=== PATIENT | female | born 1945 | race Caucasian/White ===

== ENCOUNTER 2016-04-22 00:14 | Inpatient (IN) | payer MEDICARE ==
[2016-04-22] MEDS ORDERED: DIPHENHYDRAMINE 50 MG/ML VIAL IV ONE (01:48)
[2016-04-22] MEDS ORDERED: Vancomycin HCl 0 MG in D5W 500 ML IV ONE (01:48)
--- NOTE | 2016-04-22 02:03 | EDPRACDOC ---
- General Information Chief Complaint: Cellulitis of Skin Stated Complaint: RT ARM SWELLING/REDNESS Time Seen by Provider: 04/22/16 01:43 Information Source: Patient Mode Of Arrival: Car Home Medications: Home Medications Anastrozole 1 mg PO DAILY 10/25/15 Atorvastatin Calcium [Lipitor] 20 mg PO HS 10/25/15 Cholecalciferol (Vitamin D3) [Vitamin D3] 5,000 unit PO HS 10/25/15 Levothyroxine [Synthroid, Levoxyl] 75 mcg PO DAILY 10/25/15 Multivit-Min/Folic Acid/Vit K1 [Multi For Her 50 Plus Softgel] 1 cap PO HS 10/24 Calcium Carbonate [Oscal] 1,000 mg PO HS #30 10/26/15 Carvedilol [Coreg] 6.25 mg PO BID #180 tablet 10/26/15 Clopidogrel Bisulfate [Plavix] 75 mg PO DAILY #90 tablet 10/26/15 Fenofibrate [Lofibra] 160 mg PO DAILY #30 10/26/15 Gluc Busch/Chondro Busch A/Vit C/Mn [Glucosamine 1,500 Complex Cp] 1 cap PO BID Lisinopril [Prinivil] 10 mg PO DAILY 02/04/16 Ondansetron [Zofran Odt] 4 mg PO TID PRN #10 tab.rapdis 02/04/16 Spironolactone [Aldactone] 25 mg PO DAILY 02/04/16 Allergies/Adverse Reactions: Allergies Allergy/AdvReac Type Severity Reaction Status Date / Time codeine Allergy See Verified 04/22/16 00:26 Comments Sulfa (Sulfonamide Allergy Rash-Genera Verified 04/22/16 00:26 Antibiotics) lized - History of Present Illness Onset: 2099 HPI: PT SAID THAT SHE NOTICED SOME REDNESS TO HER RIGHT ARM AROUND 2129. THE PT SAID THAT IT STARTED IN HER RIGHT AC AND HAS MOVED UP AND DOWN HER RIGHT ARM. THE PT HAS A HX OF LYMPHEDEMA TO HER RIGHT ARM AND HAS HAD CELLULITIS 4 TIMES IN THE PAST. Rash Location: Reports: Arms Quality: Reports: Red Relevant History of: Reports: None Irritability: None Pain Severity: Moderate Associated Signs and Symptoms: Reports: Red streaking ED Past Medical History - Patient Medical History Cardiac History: Reports: Hypertension, Hypercholesterolemia GI/ History: Reports: Urinary Tract Infection Musculoskeletal History: Reports: Arthritis Psychological History: Denies: Depression, Substance Use Disorder Systemic History: Reports: Cancer (right breast), Anemia (when she was younger) , Hypothyroidism Surgical History: Reports: Cholecystectomy, Other (RIGHT MASTECTOMY) - Family Medical History Reports: Hypertension (father), Diabetes (mother), Cancer (Brother with rare metastatic cancer), Stroke (Mother had multi-infarct dementia dying at 80), Cardiac Disorders (Father with [facility] at the age 68) - Social Medical History Smoking Status: Never smoker Social History: Denies: Substance Use Disorder ETOH: None Substance Abuse: None Lives In: Home EDM Review of Systems - Review of Systems ROS Negative Except as Marked: Yes All systems reviewed and were negative except as marked Integumentary: Rash - Physical Exam Constitutional: Alert (Awake), No apparent distress Oriented to: Time, Person, Place Last recorded Vital Signs: Last Vital Signs Temp 98.4 F 04/22/16 00:26 Pulse 79 04/22/16 00:26 Resp 20 04/22/16 00:26 BP 122/58 L 04/22/16 00:26 Pulse Ox 98 04/22/16 00:26 Oxygen Pulse Oxygen Saturation 98 O2 Device Oxygen Flow Rate Fraction of Inspired Oxygen ( FIO2) - HEENT Head: Normal ( normocephalic) Eye Exam: Normal (PERRL, EOMI, Sclera white) Oropharynx: Normal (Pharynx:Moist without exudate,Gums-no swelling) ENT EAC: Normal TMJ: Normal Nose: No Symptoms Reported (septum midline) Neck: Normal (FROM, trachea at midline) - Respiratory/Cardiovascular Respiratory: Normal - CTA (BBS clear to auscultation without adventitious sounds ) Cardiovascular: Normal (RRR without murmur, gallop or rub) - GI Auscultation: Normal (NABS) Palpation: Normal (Soft,No rebound or guarding, non distended) Tenderness: Non tender Tomas's Sign: Negative - Musculoskeletal Back: Normal Extremities: Other (RIGHT ARM CELLULIITS THROUGHTOUT RIGHT ARM EXTENDING UP TO RIGHT CHEST) - Integumentary Skin: Hot Lymphatics: Lymphangitis - Neurologic Memory Impaired: Normal Motor Function: Normal (Normal tone, Pulses 2+ No cyanosis or edema, FROM) Cranial Nerve: Normal (CN II-X11 intact sensation, strength 5/5) Cerebellar: Normal Mood Description: Normal Thought: Coherent Perception: Normal - Results 04/22/16 01:50 04/22/16 01:50 - EKG EKG #1 EKG Time: 02:05 -: Yes EKG interpreted by me Rate: bpm: 82 [place]: Normal Rhythm: NSR Block: None Hypertrophy: None ST: Normal Comparison: 02/04/16 - Diagnostic Imaging Chest Image interpreted by: Radiologist No active disease. Other Image interpreted by: Radiologist CT RIGHT UPPER EXTR: 1. Diffuse soft tissue swelling along the dorsal aspect of the proximal forearm, elbow and distal upper arm, with a region of soft tissue phlegmon measuring approximately 3.3 x 2.7 cm. There may be trace underlying fluid, without evidence of a drainable abscess. Mild skin thickening about the right upper arm. 2. No focal abnormality noted along the right axilla or visualized portions of the right breast. Decision Time to Discharge: 02:31 - Departure Yes I personally saw and evaluated the patient. Disposition: Home Condition: Fair Final Diagnosis: Right arm cellulitis Instructions: Cellulitis (ED) Education/Counseling Given To: Patient Education/Counseling Given Regarding: Diagnosis, Treatment, Follow Up Referrals: Donnie Ryder MD [Primary Care Provider] - One Week Prescriptions: No Action Levothyroxine [Synthroid, Levoxyl] 75 mcg PO DAILY Atorvastatin Calcium [Lipitor] 20 mg PO HS Anastrozole 1 mg PO DAILY Multivit-Min/Folic Acid/Vit K1 [Multi For Her 50 Plus Softgel] 1 cap PO HS Cholecalciferol (Vitamin D3) [Vitamin D3] 5,000 unit PO HS Calcium Carbonate [Oscal] 1,000 mg PO HS #30 Fenofibrate [Lofibra] 160 mg PO DAILY #30 Carvedilol [Coreg] 6.25 mg PO BID #180 tablet Clopidogrel Bisulfate [Plavix] 75 mg PO DAILY #90 tablet Spironolactone [Aldactone] 25 mg PO DAILY Lisinopril [Prinivil] 10 mg PO DAILY Gluc Busch/Chondro Busch A/Vit C/Mn [Glucosamine 1,500 Complex Cp] 1 cap PO BID Ondansetron [Zofran Odt] 4 mg PO TID PRN #10 tab.rapdis PRN Reason: Nausea/Vomiting Decision to Admit Time: 02:32 Decision to admit date: 04/22/16 Decision to admit: from ED - Physician Consulted Hospitalist Provider Called: Adrian Rick
[2016-04-22 02:10] LABS: MPV 8.3 fL (7.4-10.4)
[2016-04-22 02:14] LABS: BLOOD UREA NITROGEN 35 MG/DL (7-17); CALCIUM 9.9 MG/DL (8.4-10.2); CALCULATED OSMOLALITY 281 MOs/Kg (270-290); CHLORIDE 106 mEq/L (98-107); GLUCOSE 127 MG/DL (70-99); SODIUM LEVEL 141 mEq/L (137-146); TOTAL PROTEIN 7.1 G/DL (6.3-8.2)
[2016-04-22 02:24] LABS: PARTIAL THROMB. TIME 22.4 SEC (22-35); PT-INR 1.1; SEG NEUTROPHIL 88 % (45-76)
--- NOTE | 2016-04-22 02:27 | DIRPT ---
CLINICAL DATA: Cellulitis. Right arm redness, swelling, pain, and warmth. Lymphedema in the right arm. EXAM: PORTABLE CHEST 1 VIEW COMPARISON: 02/04/2016 FINDINGS: The heart size and mediastinal contours are within normal limits. Both lungs are clear. The visualized skeletal structures are unremarkable. Surgical clips in the right axilla. IMPRESSION: No active disease. Electronically Signed By: Manuel Montgomery M.D. On: 04/22/2016 02:25
[2016-04-22 02:52] LABS: FREE T3 3.62 pg/mL (2.77-5.27); FREE T4 1.5 ng/dL (0.78-2.19)
[2016-04-22] MEDS ORDERED: Pharmacy Review for Metformin - IV Contrast Given SCH (03:00)
[2016-04-22 03:05] LABS: hTSH 1.55 uIU/mL (0.5-4.67)
--- NOTE | 2016-04-22 03:18 | HISTPHYS ---
- Chief Complaint red area on arm - History of Present Illness PRIMARY CARE PROVIDER: Dr. Ryder ONCOLOGIST: Dr. Rose HPI: The patient is a 71 yo woman with a history of breast cancer and lymphedema in the right arm who presents with redness in her right arm. It started last night with a small red spot in her right anterior cubital fossa area, but then quickly spread to other parts of her arm. The redness now involves the entire right arm and right shoulder, with some spreading to the right hand and to mid chest/sternum. She reports she has had a similar event 4 times; usually she goes to her doctor, receives antibiotics and injections, and it eventually resolves. Onset: last night (several hours ago). Duration: progressively worsening. Location: right arm. Radiation: right shoulder and chest. Character: red. Slightly more swollen than usual. Itchy. Alleviated by: Nothing. Exacerbated by: Nothing. Associated Symptoms: Redness, swelling of right arm. Itching. No fever or chills. Mild pain in right arm. Has chronic pain in right shoulder and elbow that is unchanged. Mild throat pain. No throat swelling. Treatments: none at home except usual medications. - Medical History Cardiac History: Reports: Hypertension, Hypercholesterolemia GI/ History: Reports: Urinary Tract Infection Musculoskeletal History: Reports: Arthritis Systemic History: Reports: Cancer (right breast), Anemia (when she was younger) , Hypothyroidism Psychological History: Denies: Depression, Substance Use Disorder - Surgical History Reports: Cholecystectomy, Other (RIGHT MASTECTOMY) - Medictions/Allergies Allergies codeine Allergy (Verified 04/22/16 00:26) See Comments FLU LIKE SYMPTOMS PER PT Sulfa (Sulfonamide Antibiotics) Allergy (Verified 04/22/16 00:26) Rash-Generalized Current Medication List: Reviewed Home Medications Anastrozole 1 mg PO DAILY 10/25/15 Atorvastatin Calcium [Lipitor] 20 mg PO HS 10/25/15 Cholecalciferol (Vitamin D3) [Vitamin D3] 5,000 unit PO HS 10/25/15 Levothyroxine [Synthroid, Levoxyl] 75 mcg PO DAILY 10/25/15 Multivit-Min/Folic Acid/Vit K1 [Multi For Her 50 Plus Softgel] 1 cap PO HS 10/24 Calcium Carbonate [Oscal] 1,000 mg PO HS #30 10/26/15 Carvedilol [Coreg] 6.25 mg PO BID #180 tablet 10/26/15 Clopidogrel Bisulfate [Plavix] 75 mg PO DAILY #90 tablet 10/26/15 Fenofibrate [Lofibra] 160 mg PO DAILY #30 10/26/15 Gluc Busch/Chondro Busch A/Vit C/Mn [Glucosamine 1,500 Complex Cp] 1 cap PO BID Lisinopril [Prinivil] 10 mg PO DAILY 02/04/16 Ondansetron [Zofran Odt] 4 mg PO TID PRN #10 tab.rapdis 02/04/16 Spironolactone [Aldactone] 25 mg PO DAILY 02/04/16 - Family History Reports: Hypertension (father), Diabetes (mother), Cancer (Brother with rare metastatic cancer), Stroke (Mother had multi-infarct dementia dying at 80), Cardiac Disorders (Father with [facility] at the age 68) - Social History Smoking Status: Never smoker Social History: Denies: Alcohol Use, Substance Use Disorder - Review of Systems GENERAL: No Fever, chills, or diaphoresis. Positive for fatigue/malaise. HEENT: No ear pain or discharge. No nasal discharge or bleeding. Mild throat pain. No throat swelling. No eye pain or eye redness. RESPIRATORY: No cough, wheezing, or shortness of breath. CARDIOVASCULAR: No chest pain or palpitations. GI: No abdominal pain, nausea, vomiting, diarrhea, constipation, or bloody stool. NEUROLOGICAL: No headache or focal weakness. INTEGUMENT: Except as per HPI, no rashes, itching, or lesions. LYMPHATIC SYSTEM: Right arm swelling; otherwise no lymph node swelling or pain. MUSCULOSKELETAL: no new pain or joint swelling. GENITOURINARY: No dysuria or hematuria. ENDOCRINE: No polyuria or polydipsia. HEME: No chronic anemia, bleeding, or easy bruising. - Physical Exam Vital Signs: Initial Vitals Temperature 98.4 F 04/22/16 00:26 Pulse Rate 79 04/22/16 00:26 Respiratory Rate 20 04/22/16 00:26 Blood Pressure 122/58 L 04/22/16 00:26 Pulse Oxygen Saturation 98 04/22/16 00:26 Vital Signs - 24 hr 04/22/16 04/22/16 00:26 02:34 Temperature 98.4 F Pulse Rate 79 91 Respiratory 20 18 Rate Blood Pressure 122/58 L 129/58 L Pulse Oxygen 98 98 Saturation Weight: 84.8 kg Height: 5 feet 4 inches BMI: 32 - Other Exam Other Exam Findings: GENERAL: Ill-appearing, well nourished, no acute distress. HEENT: Normocephalic, atraumatic; pupils equal and round. Nares patent, without discharge or bleeding. No oropharyngeal lesions or erythema. Mucous membranes are dry. NECK: is supple, no masses, trachea midline. RESPIRATORY: Clear to auscultation bilaterally. Chest wall movements are symmetric. No use of accessory muscles to breathe. No wheezing, rales, rhonchi. CARDIOVASCULAR: Normal S1, S2. Murmur 2/6 systolic. No rubs, or gallops. PMI non -displaced. Carotids: no carotid bruits. No bradycardia or tachycardia. DP and radial pulses 2+ bilaterally. GI: soft, nontender, non-distended, normal active bowel sounds. No hepatosplenomegaly. INTEGUMENT: Right upper extremity: from shoulder to wrist: dark erythematous to purplish integument, involving entire arm circumferentially. Scattered maculopapules of same color on right hand dorsal aspect, right axilla, and right anterior chest to sternum. Otherwise, clean, dry, and intact. MUSCULOSKELETAL: Moving all extremities. No cyanosis. No clubbing. Edema: trace lower extremity edema bilaterally. Right upper extremity lymphedema. NEUROLOGICAL: Cranial nerves 2-12 grossly intact. Motor 4/5 throughout. Reflexes : 2+ bilaterally. Babinski: toes downgoing bilaterally. Intact Finger to nose. Sensory grossly intact to light touch. Intact rapid alternating movements bilaterally. No pronator drift. PSYCHIATRIC: Fully oriented. Normal and appropriate affect. LYMPHATIC: No cervical lymphadenopathy. No supraclavicular lymphadenopathy. - Lab Results Laboratory Results - last 24 hr 04/22/16 04/22/16 04/22/16 01:50 01:50 01:50 WBC 10.3 RBC 4.09 L Hgb 12.3 Hct 36.4 MCV 89 MCH 30.0 MCHC 33.8 RDW 13.9 Plt Count 243 MPV 8.3 Neut % (Auto) Cancelled Lymph % (Auto) Cancelled [place] % (Auto) Cancelled Eos % (Auto) Cancelled Baso % (Auto) Cancelled Absolute Neuts (auto) Cancelled Absolute Lymphs (auto) Cancelled Seg Neuts % (Manual) 88 H Band Neutrophils % 6 H Lymphocytes % (Manual) 6 L Absolute Neutrophils 9.68 H Absolute Lymphocytes 0.62 L Platelet Estimate Norm RBC Morphology 1+ aniso PT 11.1 INR 1.1 APTT 22.4 Sodium 141 Potassium 3.7 Chloride 106 Carbon Dioxide 26 Anion Gap 13 BUN 35 H Creatinine 0.80 Estimated GFR (MDRD) > 60 Glucose 127 H Calculated Osmolality 281 Calcium 9.9 Total Bilirubin 0.6 AST 37 H ALT 41 Alkaline Phosphatase 73 Troponin I < 0.01 Total Protein 7.1 Albumin 4.1 TSH Free T4 Free T3 04/22/16 01:50 WBC RBC Hgb Hct MCV MCH MCHC RDW Plt Count MPV Neut % (Auto) Lymph % (Auto) [place] % (Auto) Eos % (Auto) Baso % (Auto) Absolute Neuts (auto) Absolute Lymphs (auto) Seg Neuts % (Manual) Band Neutrophils % Lymphocytes % (Manual) Absolute Neutrophils Absolute Lymphocytes Platelet Estimate RBC Morphology PT INR APTT Sodium Potassium Chloride Carbon Dioxide Anion Gap BUN Creatinine Estimated GFR (MDRD) Glucose Calculated Osmolality Calcium Total Bilirubin AST ALT Alkaline Phosphatase Troponin I Total Protein Albumin TSH 1.55 Free T4 1.50 Free T3 3.62 - Diagnostic Findings EK beats per minute. Normal sinus rhythm. ST and T-wave abnormality. T- wave inversion in leads 1 and V6. Flat T-wave in lead 3. Reviewed EKG personally. Chest x-ray, viewed personally: EXAM: PORTABLE CHEST 1 VIEW COMPARISON: 02/04/2016 FINDINGS: The heart size and mediastinal contours are within normal limits. Both lungs are clear. The visualized skeletal structures are unremarkable. Surgical clips in the right axilla. IMPRESSION: No active disease. CT right upper extremity: EXAM: CT OF THE UPPER RIGHT EXTREMITY WITH CONTRAST TECHNIQUE: Multidetector CT imaging of the right upper arm and shoulder was performed according to the standard protocol following intravenous contrast administration. COMPARISON: Right upper extremity venous Doppler ultrasound performed 10/27/2008 CONTRAST: 100 mL of Isovue 370 IV contrast FINDINGS: Diffuse soft tissue swelling is noted along the dorsal aspect of the proximal forearm, elbow and distal upper arm, with a region of soft tissue phlegmon measuring approximately 3.3 x 2.7 cm in size. There may be trace underlying fluid, without evidence of a drainable abscess. Mild skin thickening is noted about the right upper arm. No definite soft tissue swelling is noted at the right axilla or visualized portions of the right breast. Clinically described skin findings are not well characterized. The visualized vasculature is grossly unremarkable in appearance. The visualized musculature is within normal limits. There is no evidence of osseous erosion. The visualized osseous structures are grossly unremarkable in appearance. The elbow joint appears intact. The right glenohumeral joint is grossly unremarkable. Minimal degenerative change is noted at the right acromioclavicular joint. Scattered clips are seen at the right axilla. The visualized portions of the right lung appear clear. Caps IMPRESSION: 1. Diffuse soft tissue swelling along the dorsal aspect of the proximal forearm, elbow and distal upper arm, with a region of soft tissue phlegmon measuring approximately 3.3 x 2.7 cm. There may be trace underlying fluid, without evidence of a drainable abscess. Mild skin thickening about the right upper arm. 2. No focal abnormality noted along the right axilla or visualized portions of the right breast. - Assessment (1) Right arm cellulitis L03.113 - CELLULITIS OF RIGHT UPPER LIMB Acute Present on Admission: Yes Area is spreading rapidly and now involves anterior chest. Plan: Admit. IV Vancomycin. (2) Right arm pain M79.601 - PAIN IN RIGHT ARM Acute Present on Admission: Yes Plan: IV Morphine prn. (3) Dehydration E86.0 - DEHYDRATION Acute Present on Admission: Yes Mild. Plan: IVFs. (4) Phlegmon L02.91 - CUTANEOUS ABSCESS, UNSPECIFIED Acute Present on Admission: Yes Phlegmon noted in deep tissues of right upper extremity on CT scan. No drainable abscess. Plan: Monitor. IV pain medication. IV vancomycin. (5) Lymphedema of right arm I89.0 - LYMPHEDEMA, NOT ELSEWHERE CLASSIFIED Acute Present on Admission: Yes Of right upper extremity. Chronic since breast cancer surgery, but has an acute component with the current cellulitis. Plan: Monitor for worsening. Case Care Discussed with: Patient, Family, Nursing Staff Total Time: 60 min
[2016-04-22 03:55] LABS: LEUKOCYTES/URINE NEG (NEGATIVE); NITRITE/URINE NEG (NEGATIVE); RBC/URINE 0-2 (0-5); URINE OCCULT BLOOD NEG (NEG/TRACE); WBC/URINE 0-2 (0-5)
--- NOTE | 2016-04-22 03:56 | DIRPT ---
CLINICAL DATA: Acute onset of right arm cellulitis, extending to the right axilla and right breast. Initial encounter. EXAM: CT OF THE UPPER RIGHT EXTREMITY WITH CONTRAST TECHNIQUE: Multidetector CT imaging of the right upper arm and shoulder was performed according to the standard protocol following intravenous contrast administration. COMPARISON: Right upper extremity venous Doppler ultrasound performed 10/27/2008 CONTRAST: 100 mL of Isovue 370 IV contrast FINDINGS: Diffuse soft tissue swelling is noted along the dorsal aspect of the proximal forearm, elbow and distal upper arm, with a region of soft tissue phlegmon measuring approximately 3.3 x 2.7 cm in size. There may be trace underlying fluid, without evidence of a drainable abscess. Mild skin thickening is noted about the right upper arm. No definite soft tissue swelling is noted at the right axilla or visualized portions of the right breast. Clinically described skin findings are not well characterized. The visualized vasculature is grossly unremarkable in appearance. The visualized musculature is within normal limits. There is no evidence of osseous erosion. The visualized osseous structures are grossly unremarkable in appearance. The elbow joint appears intact. The right glenohumeral joint is grossly unremarkable. Minimal degenerative change is noted at the right acromioclavicular joint. Scattered clips are seen at the right axilla. The visualized portions of the right lung appear clear. Caps IMPRESSION: 1. Diffuse soft tissue swelling along the dorsal aspect of the proximal forearm, elbow and distal upper arm, with a region of soft tissue phlegmon measuring approximately 3.3 x 2.7 cm. There may be trace underlying fluid, without evidence of a drainable abscess. Mild skin thickening about the right upper arm. 2. No focal abnormality noted along the right axilla or visualized portions of the right breast. Electronically Signed By: Santos Raza M.D. On: 04/22/2016 03:53
[2016-04-22] MEDS ORDERED: MORPHINE 2 MG/ML INJECTION IV PRN (04:11)
[2016-04-22] MEDS ORDERED: TRAMADOL HCL 50 MG TAB PO PRN (04:53)
[2016-04-22] MEDS ORDERED: SENNA CONCENTRATE TAB PO PRN (04:54)
[2016-04-22] MEDS ORDERED: ACETAMINOPHEN 325 MG SUPP PR PRN (04:54)
[2016-04-22] MEDS ORDERED: Docusate Sodium 100 MG CAP PO PRN (04:54)
[2016-04-22] MEDS ORDERED: ONDANSETRON HCL 4 MG/2 ML VIAL IV PRN (04:54)
[2016-04-22] MEDS ORDERED: TEMAZEPAM 15 MG CAP PO PRN (04:54)
[2016-04-22] MEDS ORDERED: PROMETHAZINE 25 MG/ML VIAL IV PRN (04:54)
[2016-04-22] MEDS ORDERED: SIMETHICONE 80 MG TAB PO PRN (04:54)
[2016-04-22] MEDS ORDERED: Aluminum;Magnesium;Simethicone 30 ML UDC PO PRN (04:54)
[2016-04-22] MEDS ORDERED: BENZONATATE 100 MG PERLES PO PRN (04:54)
[2016-04-22] MEDS ORDERED: GUAIFEN 100 MG-DEXTROMETH 10 MG PER 5 ML PO PRN (04:54)
[2016-04-22] MEDS ORDERED: BISACODYL 5 MG TAB PO PRN (04:54)
[2016-04-22] MEDS ORDERED: NS 1,000 ML IV SCH (05:00)
[2016-04-22] MEDS ORDERED: Vancomycin HCl 0 MG in D5W 500 ML IV SCH (05:00)
[2016-04-22] MEDS: ACETAMINOPHEN 325 MG/TAB TABLET PO PRN (05:19)
[2016-04-22 05:37] VITALS: BMI 31.7
[2016-04-22] MEDS ORDERED: Vaccine Screening Complete SCH (07:00)
[2016-04-22] MEDS: LEVOTHYROXINE 75 MCG (0.075 MG) TAB PO SCH (07:54)
[2016-04-22] MEDS: CARVEDILOL 6.25 MG TAB PO SCH ×2 (08:01→21:22)
[2016-04-22] MEDS: SPIRONOLACTONE 25 MG TAB PO SCH (08:02)
[2016-04-22] MEDS: LISINOPRIL 10 MG TAB PO SCH (08:02)
[2016-04-22] MEDS: CLOPIDOGREL 75 MG TAB PO SCH (08:02)
[2016-04-22] MEDS: ANASTROZOLE 1 MG TAB PO SCH (08:02)
[2016-04-22] MEDS: FENOFIBRATE 145 MG TAB PO SCH (08:02)
[2016-04-22 08:12] LABS: MPV 8.3 fL (7.4-10.4)
[2016-04-22 08:38] LABS: BLOOD UREA NITROGEN 28 MG/DL (7-17); CALCIUM 9.5 MG/DL (8.4-10.2); CALCULATED OSMOLALITY 268 MOs/Kg (270-290); CHLORIDE 104 mEq/L (98-107); GLUCOSE 127 MG/DL (70-99); SODIUM LEVEL 135 mEq/L (137-146)
[2016-04-22] MEDS ORDERED: CARVEDILOL 12.5 MG TAB PO SCH (09:00)
[2016-04-22] MEDS ORDERED: FENOFIBRATE 160 MG PO SCH (09:00)
[2016-04-22] MEDS ORDERED: NS 500 ML IV ONE (09:48)
[2016-04-22] MEDS: NS 1,000 ML IV SCH ×3 (11:36→21:32)
[2016-04-22] MEDS: CALCIUM CARBONATE 500 MG TAB PO SCH (11:39)
[2016-04-22] MEDS: VITAMINS, MULTIPLE CAP PO SCH (11:39)
[2016-04-22] MEDS: CHOLECALCIFEROL 1000 UNITS TAB PO SCH (11:40)
[2016-04-22] MEDS: ENOXAPARIN 40 MG/0.4 ML PFS SQ SCH (13:54)
[2016-04-22] MEDS ORDERED: MULTIVIT MIN PO SCH (21:00)
[2016-04-22] MEDS ORDERED: [UNRECOGNIZED DRUG - OTHER] PO SCH (21:00)
[2016-04-22] MEDS ORDERED: VIT K1 PO SCH (21:00)
[2016-04-22] MEDS ORDERED: FOLIC ACID PO SCH (21:00)
[2016-04-22] MEDS ORDERED: Non-Formulary Medication ITEM (Cholecalciferol (Vitamin D3) [Vitamin D3] 5,000 UNIT) PO SCH (21:00)
[2016-04-22] MEDS: ATORVASTATIN 20 MG TAB PO SCH (21:21)
[2016-04-23 06:17] LABS: MPV 8.4 fL (7.4-10.4)
[2016-04-23 07:00] LABS: BLOOD UREA NITROGEN 19 MG/DL (7-17); CALCIUM 8.8 MG/DL (8.4-10.2); CALCULATED OSMOLALITY 268 MOs/Kg (270-290); CHLORIDE 108 mEq/L (98-107); GLUCOSE 102 MG/DL (70-99); SODIUM LEVEL 138 mEq/L (137-146)
[2016-04-23] MEDS: LEVOTHYROXINE 75 MCG (0.075 MG) TAB PO SCH (08:22)
[2016-04-23] MEDS: CLOPIDOGREL 75 MG TAB PO SCH (08:23)
[2016-04-23] MEDS: SPIRONOLACTONE 25 MG TAB PO SCH (08:23)
[2016-04-23] MEDS: LISINOPRIL 10 MG TAB PO SCH (08:24)
[2016-04-23] MEDS: CARVEDILOL 6.25 MG TAB PO SCH ×2 (08:24→22:27)
[2016-04-23] MEDS: FENOFIBRATE 145 MG TAB PO SCH (08:24)
[2016-04-23] MEDS: ANASTROZOLE 1 MG TAB PO SCH (08:24)
[2016-04-23] MEDS: CALCIUM CARBONATE 500 MG TAB PO SCH (10:11)
[2016-04-23] MEDS: VITAMINS, MULTIPLE CAP PO SCH (10:11)
[2016-04-23] MEDS: CHOLECALCIFEROL 1000 UNITS TAB PO SCH (10:11)
[2016-04-23] MEDS: NS 1,000 ML IV SCH (11:49)
--- NOTE | 2016-04-23 15:15 | GENMEDPROG ---
Chief Complaint: Much better today. Arm remains swollen and erythematous but not nearly as fiery red. Pain improving Notes Reviewed: Yes Events from last night noted and discussed with Clinical Staff Current Medication List: Reviewed Currently: Denies: Cough, Wheezing, ORDRIGUES, SOB, Sputum - Physical Examination Vital Signs and I&O: Last Vital Signs Temp 98.1 F 04/23/16 14:00 Pulse 72 04/23/16 14:00 Resp 18 04/23/16 14:00 BP 117/48 L 04/23/16 14:00 Pulse Ox 99 04/23/16 14:00 Oxygen Pulse Oxygen Saturation 99 O2 Device Room Air Oxygen Flow Rate Fraction of Inspired Oxygen ( FIO2) Intake & Output 04/20/16 04/21/16 04/22/16 04/23/16 23:59 23:59 23:59 23:59 Intake Total 3381 722 Output Total 3400 3050 Balance -48 -1326 Patient's weight 83.943 kg 84.397 kg General: Alert, Oriented x3, Cooperative, No acute distress, Well appearing HEENT: Normal, PERRLA, EOMI, Anicteric Sclera Neck: Non-tender, Full range of motion, Normal Trachea alignment. negative: JVD Lymphatics: Normal, Lymphangitis. negative: Adenopathy Respiratory: Normal - CTA (BBS clear to auscultation without adventitious sounds ) Cardiovascular: Regular rate and rhythm, No Gallops,Rubs/Murmurs GI: Normal bowel sounds, Soft, Non tender Extremities/Musculoskeletal: Normal pulses. negative: Tenderness, Swelling, Edema Skin: Rash, Erythema Neurological: Normal speech, Strength at 5/5 X4 ext, Normal tone, Cranial nerves 3-12 NL Psych/Mental Status: Appropriate, Normal Affect, Cooperative Lab/DI/Studies Reviewed: Laboratory Results - last 24 hr 04/23/16 04/23/16 05:36 05:36 WBC 14.1 H RBC 3.34 L Hgb 10.0 L D Hct 29.9 L MCV 89 MCH 29.9 MCHC 33.5 RDW 14.5 Plt Count 201 MPV 8.4 Sodium 138 Potassium 3.6 Chloride 108 H Carbon Dioxide 24 Anion Gap 10 BUN 19 H Creatinine 0.70 Estimated GFR (MDRD) > 60 Glucose 102 H Calculated Osmolality 268 L Calcium 8.8 - Assessment (1) Right arm cellulitis Acute L03.113 - CELLULITIS OF RIGHT UPPER LIMB Comment/Plan: Still moderately erythematous but overall much improved from yesterday. White count is improving but remains elevated. Continue IV vancomycin and supportive care (2) Dehydration Acute E86.0 - DEHYDRATION Comment/Plan: DC IV fluids (3) Lymphedema of right arm Acute I89.0 - LYMPHEDEMA, NOT ELSEWHERE CLASSIFIED Comment/Plan: Chronic since breast cancer surgery. Likely would benefit from compression sleeve. She does do lymphedema pumping (4) Phlegmon Acute L02.91 - CUTANEOUS ABSCESS, UNSPECIFIED Comment/Plan: No clear abscess on CT. Continue IV antibiotics and supportive care (5) Right arm pain Acute M79.601 - PAIN IN RIGHT ARM Comment/Plan: P.r.n. analgesics though overall much improved Case Care Discussed with: Patient, Family, Resource Management
[2016-04-23] MEDS: ENOXAPARIN 40 MG/0.4 ML PFS SQ SCH (17:24)
[2016-04-23] MEDS: ATORVASTATIN 20 MG TAB PO SCH (22:28)
[2016-04-24] MEDS: LEVOTHYROXINE 75 MCG (0.075 MG) TAB PO SCH (06:25)
[2016-04-24] MEDS: ACETAMINOPHEN 325 MG/TAB TABLET PO PRN (06:30)
[2016-04-24 07:17] LABS: AUTOMATED BASOPHIL 0.2 % (0-2); AUTOMATED EOSINOPHIL 1.5 % (0-5); AUTOMATED LYMPH 17.2 % (17-44); AUTOMATED MONOCYTE 6.3 % (3-10); AUTOMATED NEUTROPHIL 74.8 % (45-76); MPV 8.2 fL (7.4-10.4)
[2016-04-24 07:38] LABS: BLOOD UREA NITROGEN 14 MG/DL (7-17); CALCIUM 8.9 MG/DL (8.4-10.2); CALCULATED OSMOLALITY 271 MOs/Kg (270-290); CHLORIDE 109 mEq/L (98-107); GLUCOSE 116 MG/DL (70-99); SODIUM LEVEL 140 mEq/L (137-146)
[2016-04-24] MEDS: ANASTROZOLE 1 MG TAB PO SCH (09:10)
[2016-04-24] MEDS: FENOFIBRATE 145 MG TAB PO SCH (09:10)
[2016-04-24] MEDS: CLOPIDOGREL 75 MG TAB PO SCH (09:10)
[2016-04-24] MEDS: SPIRONOLACTONE 25 MG TAB PO SCH (09:10)
[2016-04-24] MEDS: CARVEDILOL 6.25 MG TAB PO SCH ×2 (09:11→22:11)
[2016-04-24] MEDS: LISINOPRIL 10 MG TAB PO SCH (09:11)
[2016-04-24] MEDS: CHOLECALCIFEROL 1000 UNITS TAB PO SCH (09:11)
[2016-04-24] MEDS: VITAMINS, MULTIPLE CAP PO SCH (09:12)
[2016-04-24] MEDS: CALCIUM CARBONATE 500 MG TAB PO SCH (09:12)
--- NOTE | 2016-04-24 13:20 | GENMEDPROG ---
Chief Complaint: Overall much improved. Still mild to moderate erythema but significantly better. No pain at present Notes Reviewed: Yes Events from last night noted and discussed with Clinical Staff Current Medication List: Reviewed Currently: Denies: Cough, Wheezing, RODRIGUES, SOB, Sputum - Physical Examination Vital Signs and I&O: Last Vital Signs Temp 98.5 F 04/24/16 06:00 Pulse 67 04/24/16 06:00 Resp 18 04/24/16 06:00 BP 123/53 L 04/24/16 06:00 Pulse Ox 100 04/24/16 06:00 Oxygen Pulse Oxygen Saturation 100 O2 Device Room Air Oxygen Flow Rate Fraction of Inspired Oxygen ( FIO2) Intake & Output 04/21/16 04/22/16 04/23/16 04/24/16 23:59 23:59 23:59 23:59 Intake Total 3381 1748 1080 Output Total 3400 5600 4100 Balance -19 -3852 -3020 Patient's weight 83.943 kg 84.397 kg General: Alert, Oriented x3, Cooperative, No acute distress, Well appearing HEENT: Normal, PERRLA, EOMI, Anicteric Sclera Neck: Non-tender, Full range of motion, Normal Trachea alignment. negative: JVD Lymphatics: Normal, Lymphangitis. negative: Adenopathy Respiratory: Normal - CTA (BBS clear to auscultation without adventitious sounds ) Cardiovascular: Regular rate and rhythm, No Gallops,Rubs/Murmurs GI: Normal bowel sounds, Soft, Non tender Extremities/Musculoskeletal: Normal pulses. negative: Tenderness, Swelling, Edema Skin: Rash, Erythema Neurological: Normal speech, Strength at 5/5 X4 ext, Normal tone, Cranial nerves 3-12 NL Psych/Mental Status: Appropriate, Normal Affect, Cooperative Lab/DI/Studies Reviewed: Laboratory Results - last 24 hr 04/24/16 04/24/16 06:30 06:30 WBC 8.6 RBC 3.38 L Hgb 10.2 L Hct 29.9 L MCV 88 MCH 30.2 MCHC 34.2 RDW 14.2 Plt Count 216 MPV 8.2 Neut % (Auto) 74.8 Lymph % (Auto) 17.2 [place] % (Auto) 6.3 Eos % (Auto) 1.5 Baso % (Auto) 0.2 Absolute Neuts (auto) 6.36 Absolute Lymphs (auto) 1.46 Sodium 140 Potassium 3.7 Chloride 109 H Carbon Dioxide 25 Anion Gap 10 BUN 14 Creatinine 0.70 Estimated GFR (MDRD) > 60 Glucose 116 H Calculated Osmolality 271 Calcium 8.9 - Assessment (1) Right arm cellulitis Acute L03.113 - CELLULITIS OF RIGHT UPPER LIMB Comment/Plan: Overall much better. Still mild erythema but is improving significantly. White count has returned to normal. Continue IV antibiotics 1 more day and likely discharge home tomorrow morning. (2) Dehydration Acute E86.0 - DEHYDRATION Comment/Plan: DC IV fluids (3) Lymphedema of right arm Acute I89.0 - LYMPHEDEMA, NOT ELSEWHERE CLASSIFIED Comment/Plan: Chronic since breast cancer surgery. Likely would benefit from compression sleeve. She does do lymphedema pumping (4) Phlegmon Acute L02.91 - CUTANEOUS ABSCESS, UNSPECIFIED Comment/Plan: No clear abscess on CT. Continue IV antibiotics and supportive care (5) Right arm pain Acute M79.601 - PAIN IN RIGHT ARM Comment/Plan: P.r.n. analgesics though overall much improved Case Care Discussed with: Patient, Nursing Staff, Resource Management
[2016-04-24] MEDS: ENOXAPARIN 40 MG/0.4 ML PFS SQ SCH (17:38)
[2016-04-24] MEDS: ATORVASTATIN 20 MG TAB PO SCH (22:12)
[2016-04-25] MEDS ORDERED: CHAPSTICK LIP BALM ONE (04:59)
[2016-04-25] MEDS: LEVOTHYROXINE 75 MCG (0.075 MG) TAB PO SCH (05:45)
[2016-04-25 06:19] VITALS: TEMP 98.5
--- NOTE | 2016-04-25 08:22 | PCM.DCS92 ---
- Final/Secondary Discharge Diagnosis (1) Right arm cellulitis Acute L03.113 - CELLULITIS OF RIGHT UPPER LIMB Present on Admission: Yes Comment: Significantly better. Requests discharge home. Minimal erythema and warmth. Okay to be managed with outpatient antibiotics. (2) Dehydration Resolved E86.0 - DEHYDRATION Present on Admission: Yes Comment: Resolved (3) Lymphedema of right arm Acute I89.0 - LYMPHEDEMA, NOT ELSEWHERE CLASSIFIED Present on Admission: Yes Comment: Chronic since breast cancer surgery. Likely would benefit from compression sleeve. She does do lymphedema pumping (4) Phlegmon Acute L02.91 - CUTANEOUS ABSCESS, UNSPECIFIED Present on Admission: Yes Comment: No clear abscess on CT. Continue IV antibiotics and supportive care (5) Right arm pain Acute M79.601 - PAIN IN RIGHT ARM Present on Admission: Yes Comment: P.r.n. analgesics though overall much improved Discharge Disposition: Home Discharge Condition: Improved Cognitive Discharge Status: Unimpaired Fuctional Discharge Status: Independent Physician Follow up/Referrals: Donnie Ryder MD [Primary Care Provider] - 05/01/16 10:05 am Home Medications / New Prescriptions: New Clindamycin HCl [Cleocin HCl] 300 mg PO TID #21 capsule Probiotic Blend [Jaycee Q] 1 each PO DAILY #14 tab Continue Levothyroxine [Synthroid, Levoxyl] 75 mcg PO DAILY Atorvastatin Calcium [Lipitor] 20 mg PO HS Anastrozole 1 mg PO DAILY Multivit-Min/Folic Acid/Vit K1 [Multi For Her 50 Plus Softgel] 1 cap PO HS Cholecalciferol (Vitamin D3) [Vitamin D3] 5,000 unit PO HS Calcium Carbonate [Oscal] 1,000 mg PO HS #30 Fenofibrate [Lofibra] 160 mg PO DAILY #30 Carvedilol [Coreg] 6.25 mg PO BID #180 tablet Clopidogrel Bisulfate [Plavix] 75 mg PO DAILY #90 tablet Spironolactone [Aldactone] 25 mg PO DAILY Lisinopril [Prinivil] 10 mg PO SUMOWETHSA Gluc Busch/Chondro Busch A/Vit C/Mn [Glucosamine 1,500 Complex Cp] 3 cap PO DAILY Lisinopril/Hydrochlorothiazide [Lisinopril-Hctz 20-12.5 mg Tab] 0.5 tab PO TUFR CloNIDine (Antihypertensive) [Catapres] 0.1 mg PO DAILY PRN PRN Reason: BP>160 O2 Device: Room Air Diet at Discharge: Heart Healthy Activity: As Tolerated Call Office For: Worsening Symptoms - DC Summary Notes Hospital Course Note:: Discharge summary on patient named ARSLAN WILKINS admitted to [facility] on 04/22/16 by Adrian Rick MD. Date of discharge is []. Ms. Wilkins is a 71-year-old white female who presented emergency room with cellulitis of her right upper extremity. She has a history of chronic lymphedema status post right mastectomy and lymph node dissection. Her arm was significantly swollen and severely erythematous. Hot to the touch. She had elevated white count and was admitted to the hospital for further evaluation management. She was started on IV vancomycin. Within 24 hours we saw some improvement over the next 48 hours it has improved markedly. Swelling is much improved is minimally tender with very faint erythema. She has been keeping her arm elevated and will continue to do lymphedema pumping and wear a right upper extremity sleeve once this is healed. Her white count has returned to normal, she is afebrile and feeling much better. At this point she has reached maximal hospital benefit and is stable for discharge home. Will continue on clindamycin for MRSA coverage. Have stressed the importance of close follow-up with her primary physician in the next several days and she is to call or return should this worsen. Total Time: 40 minutes - Physical Exam Vital Signs: Last Vital Signs Temp 98.5 F 04/25/16 05:30 Pulse 75 04/25/16 05:30 Resp 20 04/25/16 05:30 BP 134/60 04/25/16 05:30 Pulse Ox 98 04/25/16 05:30 Oxygen Pulse Oxygen Saturation 98 O2 Device Room Air Oxygen Flow Rate Fraction of Inspired Oxygen ( FIO2) Constitutional: No apparent distress, Alert (Awake), Well nourished, Well appearing Oriented to: Time, Person, Place - HEENT Head: Normal ( normocephalic) Eye: Normal (PERRL, EOMI, Sclera white) Oropharynx: Normal (Pharynx:Moist without exudate,Gums-no swelling) ENT EAC: Normal TMJ: Normal Nose: No Symptoms Reported (septum midline) - Respiratory/Cardiovascular Respiratory: Normal - CTA (BBS clear to auscultation without adventitious sounds ) Cardiovascular: Normal - GI Auscultation: Normal (NABS) Palpation: Normal (Soft,No rebound or guarding, non distended) Tenderness: Non tender Tomas's Sign: Negative - Musculoskeletal Back: Normal Extremities: Other (RIGHT ARM CELLULIITS THROUGHTOUT RIGHT ARM EXTENDING UP TO RIGHT CHEST) - Integumentary Skin: Other (minimal erythema, tenderness. overall markedly better) Lymphatics: Normal, Lymphangitis. negative: Adenopathy - Neurologic Memory Impaired: Normal Motor Function: Normal Cranial Nerve: Normal Cerebellar: Normal Mood Description: Normal Thought: Coherent Perception: Normal
[2016-04-25 08:31] VITALS: BP 110/60; PULSE 72
[2016-04-25] MEDS: SPIRONOLACTONE 25 MG TAB PO SCH (08:33)
[2016-04-25] MEDS: FENOFIBRATE 145 MG TAB PO SCH (08:36)
[2016-04-25] MEDS: CARVEDILOL 6.25 MG TAB PO SCH (08:36)
[2016-04-25] MEDS: CLOPIDOGREL 75 MG TAB PO SCH (08:36)
[2016-04-25] MEDS: ANASTROZOLE 1 MG TAB PO SCH (08:37)
[2016-04-25] MEDS ORDERED: LISINOPRIL 10 MG TAB PO SCH (09:00)
[2016-04-25] MEDS ORDERED: HYDROCHLOROTHIAZIDE 25 MG TAB PO SCH (09:00)
== END 2016-04-25 09:25 | disposition home or self-care (01) | DRG 603 ==
LOC: ED 00:14 → MPS3 04:10
PROVIDERS: ADMIT Internal Medicine; ATTEND Hospitalist
DX: L03.113 Cellulitis of right upper limb (principal); I10 Essential (primary) hypertension; L02.91 Cutaneous abscess, unspecified; E86.0 Dehydration; I89.0 Lymphedema, not elsewhere classified; E03.9 Hypothyroidism, unspecified; Z79.899 Other long term (current) drug therapy; Z85.3 Personal history of malignant neoplasm of breast; Z90.11 Acquired absence of right breast and nipple; Z79.02 Long term (current) use of antithrombotics/antiplatelets
CPT/HCPCS: 36415; 71010; 80048; 80053; 80202; 81001; 84439; 84443; 84481; 84484; 85007; 85025; 85027; 85610; 85730; 87040; 93005; 96365; 96366; 96372; 96375; 99284; A9698; J1200; J1650; J3370; J3490; J7060